=== PATIENT | male | born 1980 | race Caucasian/White ===

== ENCOUNTER 2017-01-22 22:33 | Emergency (ER) | payer OTHER ==
[~2017-01-22 22:33] MED LIST: AMOXICILLIN 8751 TAB PO; NO HOME MEDICATIONS
[2017-01-23] MEDS ORDERED: LORAZEPAM0.5 M1 PO (01:03)
[2017-01-23] MEDS ORDERED: GOOD NEIGHBOR P20 M1 PO (01:03)
[2017-01-23 01:15] VITALS: BP 151/92
== END 2017-01-23 01:15 | disposition home or self-care (01) ==
LOC: ED 22:33
DX: R07.89 Other chest pain (principal); K21.9 Gastro-esophageal reflux disease without esophagitis; F41.9 Anxiety disorder, unspecified

== ENCOUNTER → 2017-02-28 | Outpatient (CLI) | payer OTHER ==
[~2017-02-28] MED LIST changes: +GOOD NEIGHBOR P20 M1 PO; +LORAZEPAM0.5 M1 PO; +NORCO 325 MG-51 TA1 PO; +PREDNISONE20 M1 PO
== END ==
LOC: LAB 07:54
DX: R17 Unspecified jaundice (principal)

== ENCOUNTER 2017-04-21 15:29 | Emergency (ER) | payer BC ==
[~2017-04-21 15:29] MED LIST changes: -NORCO 325 MG-51 TA1 PO; -PREDNISONE20 M1 PO
[2017-04-21] MEDS ORDERED: PREDNISONE20 M1 PO (17:27)
[2017-04-21] MEDS ORDERED: NORCO 325 MG-51 TA1 PO (17:27)
[2017-04-21 19:13] VITALS: BP 148/86
== END 2017-04-21 17:40 | disposition home or self-care (01) ==
LOC: ED 15:29
DX: K50.00 Crohn's disease of small intestine without complications (principal); R10.31 Right lower quadrant pain
CPT/HCPCS: J1885; J7512; Q9967

== ENCOUNTER → 2017-04-21 | Outpatient (CLI) | payer BC | LOC: LAB 15:15 ==

== ENCOUNTER → 2017-04-26 | Day surgery (SDC) | payer BC ==
[2017-04-21 19:13] VITALS: BP 148/86
[~2017-04-26] MED LIST changes: +NORCO 325 MG-51 TA1 PO; +PREDNISONE20 M1 PO
== END ==
LOC: MSO 12:10
DX: K52.9 Noninfective gastroenteritis and colitis, unspecified (principal); R93.5 Abnormal findings on diagnostic imaging of other abdominal regions, including retroperitoneum
CPT/HCPCS: 00810; A4649; J3010; J7120

== ENCOUNTER → 2017-12-21 | Outpatient (CLI) | payer BC | LOC: RAD 08:58 | DX: M25.531 Pain in right wrist (principal); M25.532 Pain in left wrist; I10 Essential (primary) hypertension ==

== ENCOUNTER → 2018-12-01 | Outpatient (CLI) | payer OTHER ==
[2018-12-01 09:04] LABS: HEMATOCRIT 49.4 % (42.0-52.0); HEMOGLOBIN 16.9 g/dL (13.5-18.0); MEAN CELL VOLUME 93 fl (78-100); MEAN CORPUSCULAR HEMOGLOBIN 32 pg (27-31); MEAN CORPUSCULAR HGB CONC 34 g/dL (33-37); MEAN PLATELET VOLUME 10.9 fl (7.4-10.4); PLATELET COUNT 190 K/mm3 (130-400); RED BLOOD COUNT 5.32 M/mm3 (4.20-5.60); RED CELL DISTRIBUTION WIDTH 11.7 % (11.5-14.5)
[2018-12-01 09:54] LABS: ALBUMIN 4.6 g/dL (3.5-5.0); CALCIUM 9.1 mg/dL (8.4-10.2); POTASSIUM 4.2 mmol/L (3.6-5.0); TOTAL BILIRUBIN 0.8 mg/dL (0.2-1.3); TOTAL PROTEIN 8.3 g/dL (6.3-8.2)
[2018-12-01 10:52] LABS: LYMPHOCYTE 39 % (20-51); MONOCYTE 10 % (3-10); NEUTROPHILS 46 % (42-75)
== END ==
LOC: RAD 08:54
PROVIDERS: Physician Assistant
DX: R06.00 Dyspnea, unspecified (principal); R50.9 Fever, unspecified; R05 Cough; R53.83 Other fatigue

== ENCOUNTER → 2019-01-09 | Outpatient (CLI) | payer OTHER ==
[2019-01-09 10:50] LABS: EOS # 0.1 (0.04-0.40); EOS % 1.8 % (0.0-4.0); HEMATOCRIT 49.3 % (42.0-52.0); HEMOGLOBIN 17.5 g/dL (13.5-18.0); LYMPH# 2.4 (1.50-4.00); MEAN CELL VOLUME 87 fl (78-100); MEAN CORPUSCULAR HEMOGLOBIN 31 pg (27-31); MEAN CORPUSCULAR HGB CONC 36 g/dL (33-37); MEAN PLATELET VOLUME 10.7 fl (7.4-10.4); MONO # 0.6 (0.20-0.80); NEU # 3.5 (1.40-6.50); PLATELET COUNT 293 K/mm3 (130-400); RED BLOOD COUNT 5.67 M/mm3 (4.20-5.60); RED CELL DISTRIBUTION WIDTH 11.7 % (11.5-14.5); WHITE BLOOD COUNT 6.5 K/mm3 (4.8-10.8)
[2019-01-09 10:57] LABS: ALBUMIN 4.6 g/dL (3.5-5.0); ALT/SGPT 67 U/L (21-72); AST-SGOT 39 U/L (17-59); CALCIUM 9.6 mg/dL (8.4-10.2); CARBON DIOXIDE 25 mmol/L (22-30); GLUCOSE 348 mg/dL (75-110); POTASSIUM 3.9 mmol/L (3.6-5.0); SODIUM 134 mmol/L (137-145)
== END ==
LOC: LAB 10:13
PROVIDERS: Physician Assistant
DX: J01.00 Acute maxillary sinusitis, unspecified (principal); H66.93 Otitis media, unspecified, bilateral; K51.90 Ulcerative colitis, unspecified, without complications; R35.0 Frequency of micturition; R63.4 Abnormal weight loss; R68.2 Dry mouth, unspecified; I10 Essential (primary) hypertension

== ENCOUNTER → 2020-09-22 | Outpatient (CLI) | payer OTHER ==
[2019-06-11 21:30] VITALS: BP 123/75
[~2020-09-22] MED LIST changes: +CELEXA 20MG20 MG/TA1 PO; +CITALOPRAM40 MG PO; +FLUTICASON0.05 MG/AC NS; +LISINOPRIL AND1 TA1 PO; +LORAZEPAM1 M1 PO; +METFORMIN ER500 MG PO
== END ==
LOC: LAB 15:13
DX: R05 Cough (principal); R51.9 Headache, unspecified; R68.83 Chills (without fever); R11.10 Vomiting, unspecified; R53.83 Other fatigue; Z20.828 Contact with and (suspected) exposure to other viral communicable diseases

== ENCOUNTER → 2020-11-27 | Outpatient (CLI) | payer OTHER ==
[2019-06-11 21:30] VITALS: BP 123/75
== END ==
LOC: RAD 08:17
DX: M25.511 Pain in right shoulder (principal); M25.512 Pain in left shoulder

== ENCOUNTER → 2020-12-08 | Outpatient (CLI) | payer OTHER ==
[2019-06-11 21:30] VITALS: BP 123/75
== END ==
LOC: LAB 11:39
DX: U07.1 COVID-19 (principal)

== ENCOUNTER → 2021-06-22 | Outpatient (CLI) | payer OTHER | LOC: LAB 14:40 | DX: Z20.822 Contact with and (suspected) exposure to COVID-19 (principal) ==

== ENCOUNTER → 2022-01-05 | Outpatient (CLI) | payer OTHER ==
[2022-01-05 16:51] LABS: BASO # 0.02 K/mm3 (0.02-0.10); EOS # 0.07 K/mm3 (0.04-0.40); EOS % 1.5 % (0.0-4.0); HEMATOCRIT 51.5 % (42.0-52.0); LYMPH# 1.27 K/mm3 (1.50-4.00); MEAN CELL VOLUME 93 fl (78-100); MEAN CORPUSCULAR HEMOGLOBIN 32 pg (27-31); MEAN CORPUSCULAR HGB CONC 35 g/dL (33-37); MEAN PLATELET VOLUME 10.4 fl (7.4-10.4); MONO # 0.56 K/mm3 (0.20-0.80); NEU # 2.69 K/mm3 (1.40-6.50); PLATELET COUNT 171 K/mm3 (130-400); RED BLOOD COUNT 5.55 M/mm3 (4.20-5.60); RED CELL DISTRIBUTION WIDTH 11.4 % (11.5-14.5); WHITE BLOOD COUNT 4.6 K/mm3 (4.8-10.8)
[2022-01-05 17:06] LABS: ALBUMIN 4.4 g/dL (3.5-5.0)
[2022-01-05 17:07] LABS: CALCIUM 9.8 mg/dL (8.3-10.5)
[2022-01-05 17:09] LABS: TOTAL PROTEIN 8.2 g/dL (6.4-8.3)
[2022-01-05 17:10] LABS: TOTAL BILIRUBIN 0.4 mg/dL (0.2-1.2)
== END ==
LOC: LAB 16:39
PROVIDERS: Physician Assistant
DX: Z00.00 Encounter for general adult medical examination without abnormal findings (principal); Z13.29 Encounter for screening for other suspected endocrine disorder; I10 Essential (primary) hypertension; I89.0 Lymphedema, not elsewhere classified; F41.1 Generalized anxiety disorder; G47.00 Insomnia, unspecified; E11.9 Type 2 diabetes mellitus without complications; K90.9 Intestinal malabsorption, unspecified

== ENCOUNTER → 2022-01-07 | Outpatient (CLI) | payer OTHER | LOC: LAB 08:24 | DX: I10 Essential (primary) hypertension (principal); E11.9 Type 2 diabetes mellitus without complications; E78.5 Hyperlipidemia, unspecified; R79.89 Other specified abnormal findings of blood chemistry ==

== ENCOUNTER → 2022-07-20 | Outpatient (CLI) | payer BC | LOC: LAB 09:52 | DX: L73.9 Follicular disorder, unspecified (principal) ==

== ENCOUNTER → 2024-10-17 | Outpatient (CLI) | payer BC ==
[~2024-10-17] MED LIST changes: +CEPHALEXIN500 M1 PO; +PERCOCET 325 MG1 TA2 PO; +SILVADENE20 GM TP
[2024-10-17 10:38] LABS: BASO # 0.03 K/mm3 (0.02-0.10); EOS # 0.22 K/mm3 (0.04-0.40); EOS % 3.5 % (0.0-4.0); HEMATOCRIT 46.1 % (42.0-52.0); HEMOGLOBIN 16.4 g/dL (13.5-18.0); MEAN CELL VOLUME 91 fl (78-100); MEAN CORPUSCULAR HEMOGLOBIN 32 pg (27-31); MEAN CORPUSCULAR HGB CONC 36 g/dL (33-37); MONO # 0.55 K/mm3 (0.20-0.80); NEU # 3.15 K/mm3 (1.40-6.50); PLATELET COUNT 237 K/mm3 (130-400); RED BLOOD COUNT 5.07 M/mm3 (4.20-5.60); RED CELL DISTRIBUTION WIDTH 11.4 % (11.5-14.5); WHITE BLOOD COUNT 6.3 K/mm3 (4.8-10.8)
[2024-10-17 10:44] LABS: ALBUMIN 4.2 g/dL (3.5-5.0)
[2024-10-17 10:45] LABS: CALCIUM 9.8 mg/dL (8.3-10.5)
[2024-10-17 10:46] LABS: TOTAL PROTEIN 7.1 g/dL (6.4-8.3)
[2024-10-17 10:48] LABS: TOTAL BILIRUBIN 0.5 mg/dL (0.2-1.2)
== END ==
LOC: LAB 10:19
PROVIDERS: Physician Assistant
DX: Z13.29 Encounter for screening for other suspected endocrine disorder (principal); I10 Essential (primary) hypertension; K90.9 Intestinal malabsorption, unspecified; E11.9 Type 2 diabetes mellitus without complications; E78.2 Mixed hyperlipidemia